=== PATIENT | male | born 1960 | race Caucasian/White ===

== ENCOUNTER 2018-02-11 23:58 | Inpatient (IN) | payer MEDICAID ==
[~2018-02-11] VITALS: Ht 177.8 cm; Wt 100.6 kg
[2018-02-12] VITALS (26 sets, daily range): BP systolic 89–130; BP diastolic 58–84
--- NOTE | 2018-02-12 01:45 | NUR ---
patient arrived to unit at this time. intubated/sedated. vital signs WNL's with 10mcg of levophed.
[2018-02-12] MEDS ORDERED: NORepinephrine 8mg/ 250ml NS 250 ML IV PRN (02:07)
[2018-02-12] MEDS ORDERED: ondansetron/PF 4mg/2ml inj IV PRN (02:10)
[2018-02-12] MEDS ORDERED: acetaminophen 650mg rectal suppository RC PRN (02:10)
[2018-02-12 02:51] LABS: BASOPHILS % (AUTO) 0.3 % (0-1); EOSINOPHILS # (AUTO) 0.1 X10'3 (0-0.9); EOSINOPHILS % (AUTO) 0.5 % (0-6); HEMATOCRIT 24.7 % (42.0-52.0); HEMOGLOBIN 8.1 g/dl (14.0-17.9); LYMPHOCYTES % (AUTO) 13.6 % (21-51); MEAN CORPUSCULAR HGB CONC 32.8 % (33.0-36.5); MEAN CORPUSCULAR VOLUME 94.6 FL (78-98); MEAN PLATELET VOLUME 7.9 FL (7.4-10.4); MONOCYTES # (AUTO) 0.4 X10'3 (0-0.9); MONOCYTES % (AUTO) 2.8 % (2-12); NEUTROPHILS # (AUTO) 12.3 X10'3 (1.8-7.7); NEUTROPHILS % (AUTO) 82.8 % (42-75); PLATELET COUNT 345 X10'3 (140-440); RED BLOOD COUNT 2.61 X10'6 (4.70-6.10); RED CELL DISTRIBUTION WIDTH 15.4 % (11.5-14.5); WHITE BLOOD COUNT 14.8 X10'3 (4.5-11.0)
[2018-02-12 03:01] LABS: ABG BASE EXCESS -0.8 mmol/L (-2.0-3.0); ABG HCO3 23.6 mmol/L (22.0-26.0); ABG OXYGEN SATURATION 97.4 % (95-98); ABG PO2 (T) 103.2 mmHg (83-108); ALLEN'S TEST Positive; FCOHb 0.3 % (0.5-1.5); FMetHb 0.3 % (0.3-1.12); FO2Hb 96.8 % (94-100); MINUTE VOLUME 7 L/min; PATIENT TEMPERATURE 36.6; PEEP 5 cm H2O; RESPIRATORY RATE 16 b/min; RESPIRATORY RATE (OBSERVED) 16 b/min; TIDAL VOLUME 400 mL; TOTAL HEMOGLOBIN 10.1 G/dl (14.0-18.0)
[2018-02-12] MEDS: midazolam 100mg in NS 100ml 100 ML IV PRN (03:02)
[2018-02-12] MEDS: FENTANYL-0.9 % NACL/PF 100 ML IV PRN (03:03)
[2018-02-12 03:04] LABS: INR 1.1 INR; PARTIAL THROMBOPLASTIN TIME 28 SECONDS (22-32); PROTHROMBIN TIME 11.4 SECONDS (9.0-12.0)
[2018-02-12 03:06] LABS: OXYGEN SATURATION (MIXED VEN) 64.4 % (60-80); PO2 MIXED VENOUS (TEMP COR) 31.4 mmHg (35-46)
[2018-02-12] MEDS: normal saline 1000ml 1,000 ML IV SCH ×5 (03:06→20:59)
[2018-02-12 03:14] LABS: LACTIC SEPSIS 1.1 MMOL/L (0.4-2.0)
[2018-02-12 03:14] LABS: CLARITY,URINE CLEAR (Clear); COLOR,URINE YELLOW (Yellow); GLUCOSE, URINE NEGATIVE (Neg); KETONES,URINE NEGATIVE (Neg); LEUKOCYTE ESTERASE ,URINE NEGATIVE (Neg); NITRITES, URINE NEGATIVE (Neg); OCCULT BLOOD,URINE SMALL (Neg); PROTEIN,URINE NEGATIVE (Neg); UROBILINOGEN,URINE 0.2 E.U/dL (0.2-1.0)
[2018-02-12] MEDS: ipratropium/albuterol 3ml nebule NEB SCH ×6 (03:16→22:43)
[2018-02-12 03:17] LABS: UA COLLECTION TYPE FOLEY CATH
[2018-02-12 03:18] LABS: ALANINE AMINOTRANSFERASE 17 U/L (12-78); ALBUMIN 2.3 G/DL (3.4-5.0); ALBUMIN/GLOBULIN RATIO 0.6 (1.1-1.5); ALKALINE PHOSPHATASE 50 IU/L (46-116); ANION GAP 10 (8-16); ASPARTATE AMINO TRANSFERASE 32 U/L (10-37); BILIRUBIN,TOTAL 0.5 MG/DL (0.1-1.0); BLOOD UREA NITROGEN 38 MG/DL (7-18); CALCIUM 8.4 MG/DL (8.5-10.1); CHLORIDE 111 MMOL/L (99-107); CREATININE 5.44 MG/DL (0.60-1.10); GLUCOSE 142 MG/DL (70-104); POTASSIUM 4.7 MMOL/L (3.5-5.1); SODIUM 145 MMOL/L (135-145); TOTAL CARBON DIOXIDE 23.8 MMOL/L (24-32); TOTAL PROTEIN 6.2 G/DL (6.4-8.2); eGFR 11 ML/MIN
[2018-02-12 03:21] LABS: AMMONIA < 10 UMOL/L (11-32)
[2018-02-12 03:27] LABS: MAGNESIUM 1.5 MG/DL (1.5-2.4); PHOSPHORUS 4.8 MG/DL (2.3-4.5); TROPONIN I 0.05 NG/ML (0.0-0.05)
[2018-02-12 03:35] LABS: SQUAMOUS EPITHELIAL CELL,UR FEW /LPF (FEW)
[2018-02-12 03:36] LABS: BACTERIA,URINE FEW /HPF (Neg); WBC,URINE 0-4 /HPF (0-4)
[2018-02-12] MEDS ORDERED: ALLO100T PO (04:54)
[2018-02-12] MEDS ORDERED: HYDR-4069 PO (04:56)
[2018-02-12] MEDS ORDERED: losartan PO (04:58)
[2018-02-12] MEDS ORDERED: CIPR250T4 PO (05:01)
--- NOTE | 2018-02-12 05:45 | NUR ---
patient taken to CT from 514 to 544. tolerated well. continue to monitor.
--- NOTE | 2018-02-12 06:30 | NUR ---
Problems reprioritized. Patient report given, questions answered & plan of care reviewed with Donna FISH.
[2018-02-12] MEDS: heparin, porcine 5000 units/ml vial SQ SCH ×2 (08:00→20:58)
[2018-02-12] MEDS: docusate sodium 100mg/10ml UD cup PO SCH ×2 (08:00→20:57)
[2018-02-12] MEDS: levoFLOXACIN-Levaquin 250mg/D5 50 ML IV SCH (08:00)
[2018-02-12] MEDS: pantoprazole 40 MG vial IV SCH (08:00)
--- NOTE | 2018-02-12 11:42 | NUR ---
Initial: Pt transferred from [facility]/ higher level of care for septic shock and resp failure. Pt currently intubated with unknown ht and BMI, d/w RN. Estimated nutrient needs pending once ht and BMI obtained. Pt may benefit from nutrition support if prolonged intubation. Will continue to follow. Recommendations: 1) Nutrition support if prolonged intubation 2) If TF, prealbumin q M/TH and daily wts 3) Following extubation diet advancement to heart healthy as medically indicated Addendum: 02/12/18 at [address] Amended: Links added.
[2018-02-12 17:34] LABS: CLARITY,URINE CLEAR (Clear); COLOR,URINE STRAW (Yellow); GLUCOSE, URINE NEGATIVE (Neg); KETONES,URINE NEGATIVE (Neg); LEUKOCYTE ESTERASE ,URINE NEGATIVE (Neg); NITRITES, URINE NEGATIVE (Neg); OCCULT BLOOD,URINE TRACE-INTACT (Neg); PROTEIN,URINE NEGATIVE (Neg); UROBILINOGEN,URINE 0.2 E.U/dL (0.2-1.0)
[2018-02-12 17:36] LABS: UA COLLECTION TYPE FOLEY CATH
[2018-02-12 17:37] LABS: MUCUS STRANDS FEW /LPF (Neg); SQUAMOUS EPITHELIAL CELL,UR FEW /LPF (FEW)
[2018-02-12 17:38] LABS: BACTERIA,URINE FEW /HPF (Neg); WBC,URINE 0-4 /HPF (0-4)
[2018-02-12 18:00] LABS: TOTAL PROTEIN,URINE RANDOM 24.7 MG/DL
--- NOTE | 2018-02-12 18:30 | NUR ---
Patient in room CICU 2009. I have received report from Donna FISH, and had the opportunity to ask questions and assume patient care.
[2018-02-12 18:43] LABS: UA EOSINOPHILS NO EOS /HPF
--- NOTE | 2018-02-12 20:00 | NUR ---
PT is resting with no s/s of distress noted at this time. VSS. PT is intubated and sedated and tolerating well, O2 sat >96%. OG is to LIS, yellow/green drainage noted. Delvalle in place draining to gravity. Bed is locked and low Bilat soft wrist restraints in place and secure. Will continue to monitor.
--- NOTE | 2018-02-12 23:30 | NUR ---
PT resting with no s/s of distress noted at this time. VSS. Bed is locked and low. Bilat soft wrist restraints remain in place Will continue to monitor.
[2018-02-13] VITALS (23 sets, daily range): BP systolic 99–140; BP diastolic 60–87
[2018-02-13] MEDS: acetaminophen 325mg tablet PO PRN ×3 (00:29→19:47)
[2018-02-13] MEDS: FENTANYL-0.9 % NACL/PF 100 ML IV PRN ×2 (01:25→15:38)
--- NOTE | 2018-02-13 03:00 | NUR ---
PT continues to rest with no s/s of distress noted at this time. VSS. Bed is locked and low. Bilat soft wrist restraints remain in place Will continue to monitor.
[2018-02-13] MEDS: ipratropium/albuterol 3ml nebule NEB SCH ×6 (03:22→23:23)
[2018-02-13 03:34] LABS: BASOPHILS % (AUTO) 0.2 % (0-1); EOSINOPHILS # (AUTO) 0.1 X10'3 (0-0.9); EOSINOPHILS % (AUTO) 0.6 % (0-6); HEMATOCRIT 25.5 % (42.0-52.0); HEMOGLOBIN 8.6 g/dl (14.0-17.9); LYMPHOCYTES # (AUTO) 2.3 X10'3 (1.1-4.8); LYMPHOCYTES % (AUTO) 13.7 % (21-51); MEAN CORPUSCULAR HEMOGLOBIN 31.7 PG (27.0-31.0); MEAN CORPUSCULAR HGB CONC 33.8 % (33.0-36.5); MEAN CORPUSCULAR VOLUME 94.1 FL (78-98); MEAN PLATELET VOLUME 8.1 FL (7.4-10.4); MONOCYTES # (AUTO) 1.2 X10'3 (0-0.9); MONOCYTES % (AUTO) 6.8 % (2-12); NEUTROPHILS # (AUTO) 13.5 X10'3 (1.8-7.7); NEUTROPHILS % (AUTO) 78.7 % (42-75); PLATELET COUNT 273 X10'3 (140-440); RED BLOOD COUNT 2.71 X10'6 (4.70-6.10); RED CELL DISTRIBUTION WIDTH 15.1 % (11.5-14.5); WHITE BLOOD COUNT 17.1 X10'3 (4.5-11.0)
[2018-02-13 03:36] LABS: INR 1.2 INR; PARTIAL THROMBOPLASTIN TIME 34 SECONDS (22-32); PROTHROMBIN TIME 11.9 SECONDS (9.0-12.0)
[2018-02-13 03:41] LABS: ABG BASE EXCESS -4.6 mmol/L (-2.0-3.0); ABG HCO3 19.1 mmol/L (22.0-26.0); ABG OXYGEN SATURATION 97.5 % (95-98); ABG PCO2 (T) 32.2 mmHg (35.0-48.0); ABG PH (T) 7.394 (7.350-7.450); ABG PO2 (T) 107.8 mmHg (83-108); ALLEN'S TEST Positive; FCOHb 0.1 % (0.5-1.5); FMetHb 0.3 % (0.3-1.12); FO2Hb 97.1 % (94-100); MINUTE VOLUME 8 L/min; PATIENT TEMPERATURE 37.6; PEEP 5 cm H2O; RESPIRATORY RATE 16 b/min; RESPIRATORY RATE (OBSERVED) 18 b/min; TIDAL VOLUME 400 mL; TOTAL HEMOGLOBIN 12.8 G/dl (14.0-18.0)
[2018-02-13 04:02] LABS: ALANINE AMINOTRANSFERASE 16 U/L (12-78); ALBUMIN 2.1 G/DL (3.4-5.0); ALBUMIN/GLOBULIN RATIO 0.5 (1.1-1.5); ALKALINE PHOSPHATASE 44 IU/L (46-116); ANION GAP 12 (8-16); ASPARTATE AMINO TRANSFERASE 24 U/L (10-37); BILIRUBIN,TOTAL 0.5 MG/DL (0.1-1.0); BLOOD UREA NITROGEN 40 MG/DL (7-18); BUN/CREATININE RATIO 7.7 (5.4-32.0); CHLORIDE 113 MMOL/L (99-107); GLUCOSE 87 MG/DL (70-104); MAGNESIUM 1.3 MG/DL (1.5-2.4); PHOSPHORUS 4.3 MG/DL (2.3-4.5); POTASSIUM 4.9 MMOL/L (3.5-5.1); SODIUM 146 MMOL/L (135-145); TOTAL CARBON DIOXIDE 20.6 MMOL/L (24-32); TOTAL PROTEIN 6.3 G/DL (6.4-8.2); eGFR 12 ML/MIN
[2018-02-13] MEDS: normal saline 1000ml 1,000 ML IV SCH ×3 (04:28→19:58)
[2018-02-13] MEDS: midazolam 100mg in NS 100ml 100 ML IV PRN (05:57)
--- NOTE | 2018-02-13 06:38 | NUR ---
Problems reprioritized. Patient report given, questions answered & plan of care reviewed with Shira FISH.
[2018-02-13] MEDS: heparin, porcine 5000 units/ml vial SQ SCH ×2 (08:20→19:42)
[2018-02-13] MEDS: pantoprazole 40 MG vial IV SCH (08:20)
[2018-02-13] MEDS: docusate sodium 100mg/10ml UD cup PO SCH ×2 (08:20→19:42)
[2018-02-13] MEDS: levoFLOXACIN-Levaquin 250mg/D5 50 ML IV SCH (08:21)
[2018-02-13] MEDS: mineral oil/petrolatum ophthal oint EACHEYE SCH ×3 (08:21→19:41)
--- NOTE | 2018-02-13 12:53 | NUR ---
Per Dr. Mancera, will not replace mag of 1.3
--- NOTE | 2018-02-13 16:06 | NUR ---
Tube feeding consult: Patient is intubated. Noted that per MD note patient is newly diagnosed with DM, no A1C available in labs. Patient has h/o ESRD and admitted with septic shock and respiratory failure. Recommendations: 1) Tube feeding using Vital HP starting at 20 ml/hr and advance by 20 ml q 8 to goal rate of 80 ml/hr will provide total volume of 1920 ml, 1920 cals, 168 gm protein, and 1605 ml free water. Provide additional 200 ml water flush q 4. 2) Prealbumin q saturday and , daily wts 3) Following extubation diet advancement to heart healthy as medically indicated Addendum: 02/13/18 at [address] Amended: Links added.
[2018-02-13 18:06] LABS: PREALBUMIN 15.2 MG/DL (19-36)
--- NOTE | 2018-02-13 18:25 | NUR ---
Patient in room CICU 2009. I have received report and had the opportunity to ask questions and assume patient care.
--- NOTE | 2018-02-13 18:41 | NUR ---
Problems reprioritized. Patient report given, questions answered & plan of care reviewed with ABE Knott.
[2018-02-13] MEDS: famotidine/PF 10 mg/ml inj IV SCH (19:42)
--- NOTE | 2018-02-13 22:00 | NUR ---
pt intubated. vitals signs stable. no s/s of distress. no change in condition noted. will continue to monitor
[2018-02-14] VITALS (25 sets, daily range): BP systolic 105–144; BP diastolic 58–89
--- NOTE | 2018-02-14 | NUR ---
pt intubated. vitals signs stable. no s/s of distress. no change in condition noted. will continue to monitor
--- NOTE | 2018-02-14 02:00 | NUR ---
pt intubated. vitals signs stable. no s/s of distress. no change in condition noted. will continue to monitor
[2018-02-14] MEDS ORDERED: lactulose 20gm/30ml cup PO PRN (02:10)
[2018-02-14] MEDS: ipratropium/albuterol 3ml nebule NEB SCH ×5 (02:13→21:24)
[2018-02-14] MEDS: mineral oil/petrolatum ophthal oint EACHEYE SCH ×3 (02:49→14:00)
[2018-02-14 03:34] LABS: BASOPHILS % (AUTO) 0.1 % (0-1); EOSINOPHILS # (AUTO) 0.1 X10'3 (0-0.9); EOSINOPHILS % (AUTO) 0.4 % (0-6); HEMATOCRIT 22.8 % (42.0-52.0); HEMOGLOBIN 7.5 g/dl (14.0-17.9); LYMPHOCYTES # (AUTO) 1.9 X10'3 (1.1-4.8); LYMPHOCYTES % (AUTO) 12.4 % (21-51); MEAN CORPUSCULAR HEMOGLOBIN 31.1 PG (27.0-31.0); MEAN CORPUSCULAR HGB CONC 32.9 % (33.0-36.5); MEAN CORPUSCULAR VOLUME 94.6 FL (78-98); MEAN PLATELET VOLUME 7.9 FL (7.4-10.4); MONOCYTES # (AUTO) 1.1 X10'3 (0-0.9); MONOCYTES % (AUTO) 7.3 % (2-12); NEUTROPHILS # (AUTO) 12.5 X10'3 (1.8-7.7); NEUTROPHILS % (AUTO) 79.8 % (42-75); PLATELET COUNT 232 X10'3 (140-440); RED BLOOD COUNT 2.41 X10'6 (4.70-6.10); WHITE BLOOD COUNT 15.6 X10'3 (4.5-11.0)
[2018-02-14 03:44] LABS: INR 1.3 INR; PARTIAL THROMBOPLASTIN TIME 40 SECONDS (22-32); PROTHROMBIN TIME 12.6 SECONDS (9.0-12.0)
[2018-02-14 03:46] LABS: ALANINE AMINOTRANSFERASE 16 U/L (12-78); ALBUMIN 1.8 G/DL (3.4-5.0); ALBUMIN/GLOBULIN RATIO 0.4 (1.1-1.5); ALKALINE PHOSPHATASE 43 IU/L (46-116); ANION GAP 12 (8-16); ASPARTATE AMINO TRANSFERASE 21 U/L (10-37); BILIRUBIN,TOTAL 0.5 MG/DL (0.1-1.0); BLOOD UREA NITROGEN 40 MG/DL (7-18); BUN/CREATININE RATIO 8.2 (5.4-32.0); CHLORIDE 112 MMOL/L (99-107); CREATININE 4.88 MG/DL (0.60-1.10); GLUCOSE 100 MG/DL (70-104); MAGNESIUM 1.2 MG/DL (1.5-2.4); PHOSPHORUS 4.9 MG/DL (2.3-4.5); POTASSIUM 4.8 MMOL/L (3.5-5.1); SODIUM 145 MMOL/L (135-145); TOTAL CARBON DIOXIDE 21.3 MMOL/L (24-32); TOTAL PROTEIN 6.1 G/DL (6.4-8.2); eGFR 12 ML/MIN
--- NOTE | 2018-02-14 04:00 | NUR ---
pt intubated. vitals signs stable. no s/s of distress. no change in condition noted. will continue to monitor
[2018-02-14] MEDS: acetaminophen 325mg tablet PO PRN ×3 (04:27→22:00)
[2018-02-14 04:46] LABS: ABG BASE EXCESS -4.7 mmol/L (-2.0-3.0); ABG HCO3 19.3 mmol/L (22.0-26.0); ABG OXYGEN SATURATION 94.7 % (95-98); ABG PCO2 (T) 33.4 mmHg (35.0-48.0); ABG PH (T) 7.386 (7.350-7.450); ABG PO2 (T) 82.6 mmHg (83-108); ALLEN'S TEST Positive; FCOHb 0.3 % (0.5-1.5); FMetHb 0.3 % (0.3-1.12); FO2Hb 94.1 % (94-100); PATIENT TEMPERATURE 38.7; PEEP 5 cm H2O; RESPIRATORY RATE (OBSERVED) 15 b/min; TOTAL HEMOGLOBIN 8.1 G/dl (14.0-18.0)
[2018-02-14] MEDS: famotidine/PF 10 mg/ml inj IV SCH ×2 (09:13→19:13)
[2018-02-14] MEDS: levoFLOXACIN-Levaquin 250mg/D5 50 ML IV SCH (09:13)
[2018-02-14] MEDS: docusate sodium 100mg/10ml UD cup PO SCH ×2 (09:13→19:13)
[2018-02-14] MEDS: heparin, porcine 5000 units/ml vial SQ SCH ×2 (09:14→19:13)
[2018-02-14] MEDS ORDERED: methylnaltrexone br 12mg/0.6ml inj***SubQ only SQ SCH (11:24)
[2018-02-14] MEDS ORDERED: ipratropium/albuterol 3ml nebule NEB PRN (13:05)
[2018-02-14] MEDS ORDERED: racepinephrine 11.25mg/0.5ml nebule NEB PRN (13:05)
[2018-02-14] MEDS: normal saline 1000ml 1,000 ML IV SCH (15:58)
[2018-02-14] MEDS: predniSONE 20 mg tablet PO SCH (17:42)
[2018-02-14] MEDS: allopurinol 100mg tablet PO SCH (17:42)
--- NOTE | 2018-02-14 18:30 | NUR ---
Patient in room CICU 2009. I have received report and had the opportunity to ask questions and assume patient care.
--- NOTE | 2018-02-14 18:38 | NUR ---
Problems reprioritized. Patient report given, questions answered & plan of care reviewed with Hedy FISH.
--- NOTE | 2018-02-14 19:00 | NUR ---
pt is very lethargic. pt responds to voice and shaking. pt is A&O x 1. pt is oriented to self but he can follow commands.
[2018-02-15] VITALS (17 sets, daily range): BP systolic 103–141; BP diastolic 63–101
[2018-02-15] MEDS: hydrALAZINE 25 MG tablet PO SCH ×3 (00:12→17:55)
--- NOTE | 2018-02-15 01:00 | NUR ---
pt woke and started asking where he was. pt has no recollection of where he is or what happened to him. pt reoriented.
[2018-02-15] MEDS: ipratropium/albuterol 3ml nebule NEB SCH ×3 (02:45→20:12)
[2018-02-15 03:06] LABS: BASOPHILS % (AUTO) 0 % (0-1); EOSINOPHILS % (AUTO) 0 % (0-6); HEMOGLOBIN 7.1 g/dl (14.0-17.9); LYMPHOCYTES # (AUTO) 0.8 X10'3 (1.1-4.8); LYMPHOCYTES % (AUTO) 6.7 % (21-51); MEAN CORPUSCULAR HEMOGLOBIN 30.1 PG (27.0-31.0); MEAN CORPUSCULAR HGB CONC 32.1 % (33.0-36.5); MEAN PLATELET VOLUME 7.6 FL (7.4-10.4); MONOCYTES # (AUTO) 0.3 X10'3 (0-0.9); MONOCYTES % (AUTO) 2.7 % (2-12); NEUTROPHILS # (AUTO) 10.9 X10'3 (1.8-7.7); NEUTROPHILS % (AUTO) 90.6 % (42-75); PLATELET COUNT 240 X10'3 (140-440); RED BLOOD COUNT 2.34 X10'6 (4.70-6.10); RED CELL DISTRIBUTION WIDTH 16.1 % (11.5-14.5)
[2018-02-15 03:15] LABS: ALANINE AMINOTRANSFERASE 15 U/L (12-78); ALBUMIN 1.8 G/DL (3.4-5.0); ALBUMIN/GLOBULIN RATIO 0.4 (1.1-1.5); ALKALINE PHOSPHATASE 55 IU/L (46-116); ANION GAP 13 (8-16); ASPARTATE AMINO TRANSFERASE 21 U/L (10-37); BILIRUBIN,TOTAL 0.4 MG/DL (0.1-1.0); BLOOD UREA NITROGEN 37 MG/DL (7-18); BUN/CREATININE RATIO 8.4 (5.4-32.0); CALCIUM 8.7 MG/DL (8.5-10.1); CHLORIDE 111 MMOL/L (99-107); CREATININE 4.39 MG/DL (0.60-1.10); GLUCOSE 128 MG/DL (70-104); MAGNESIUM 1.4 MG/DL (1.5-2.4); PHOSPHORUS 4.6 MG/DL (2.3-4.5); POTASSIUM 4.6 MMOL/L (3.5-5.1); SODIUM 144 MMOL/L (135-145); TOTAL CARBON DIOXIDE 19.8 MMOL/L (24-32); TOTAL PROTEIN 6.5 G/DL (6.4-8.2); eGFR 14 ML/MIN
[2018-02-15 03:26] LABS: INR 1.2 INR; PARTIAL THROMBOPLASTIN TIME 40 SECONDS (22-32); PROTHROMBIN TIME 11.7 SECONDS (9.0-12.0)
--- NOTE | 2018-02-15 03:41 | NUR ---
pt woke up and asked me when dialysis would be over. pt reoriented to where he was and why he was taken to the hospital. pt remains A&O x 1. will continue to monitor
[2018-02-15] MEDS: docusate sodium 100mg/10ml UD cup PO SCH ×3 (08:00→20:30)
[2018-02-15] MEDS: levoFLOXACIN-Levaquin 250mg/D5 50 ML IV SCH (08:29)
[2018-02-15] MEDS: predniSONE 20 mg tablet PO SCH (08:34)
[2018-02-15] MEDS: famotidine/PF 10 mg/ml inj IV SCH (08:34)
[2018-02-15] MEDS: losartan 50mg tablet PO SCH (08:34)
[2018-02-15] MEDS: allopurinol 100mg tablet PO SCH (08:34)
[2018-02-15] MEDS: heparin, porcine 5000 units/ml vial SQ SCH ×2 (08:42→20:30)
[2018-02-15] MEDS ORDERED: colchicine 0.6mg tablet PO ONE (08:45)
--- NOTE | 2018-02-15 08:53 | NUR ---
Patient's H/H 7.1 and 22; Dr. Mancera at the bedside. No orders to transfuse and okay to admin Heparin SQ
[2018-02-15 10:06] LABS: HEMOGLOBIN A1C 7.9 % (4.5-6.2)
[2018-02-15] MEDS: normal saline 1000ml 1,000 ML IV SCH (11:58)
--- NOTE | 2018-02-15 14:00 | NUR ---
I received patient report from Dread FISH in ICU
[2018-02-15] MEDS: acetaminophen 325mg tablet PO PRN ×2 (14:04→20:31)
--- NOTE | 2018-02-15 15:21 | NUR ---
Patient transferred to PCU 2015A at 1427 with all belongings; Report given to Nathalia FISH
--- NOTE | 2018-02-15 18:24 | NUR ---
Problems reprioritized. Patient report given, questions answered & plan of care reviewed with Sandra FISH.
[2018-02-16] VITALS: BP 141/86
[2018-02-16] MEDS: hydrALAZINE 25 MG tablet PO SCH ×3 (00:23→17:14)
[2018-02-16] MEDS: ipratropium/albuterol 3ml nebule NEB SCH ×4 (02:40→20:24)
[2018-02-16 03:00] VITALS: BP 136/87
[2018-02-16 06:13] LABS: ALANINE AMINOTRANSFERASE 17 U/L (12-78); ALBUMIN 1.9 G/DL (3.4-5.0); ALBUMIN/GLOBULIN RATIO 0.4 (1.1-1.5); ALKALINE PHOSPHATASE 58 IU/L (46-116); ANION GAP 16 (8-16); ASPARTATE AMINO TRANSFERASE 21 U/L (10-37); BILIRUBIN,TOTAL 0.3 MG/DL (0.1-1.0); BLOOD UREA NITROGEN 40 MG/DL (7-18); BUN/CREATININE RATIO 9.9 (5.4-32.0); CALCIUM 8.6 MG/DL (8.5-10.1); CHLORIDE 110 MMOL/L (99-107); CREATININE 4.05 MG/DL (0.60-1.10); GLUCOSE 99 MG/DL (70-104); MAGNESIUM 1.7 MG/DL (1.5-2.4); PHOSPHORUS 3.7 MG/DL (2.3-4.5); POTASSIUM 3.9 MMOL/L (3.5-5.1); SODIUM 145 MMOL/L (135-145); TOTAL PROTEIN 6.6 G/DL (6.4-8.2); eGFR 15 ML/MIN
[2018-02-16 06:20] LABS: BASOPHILS % (AUTO) 0.2 % (0-1); EOSINOPHILS # (AUTO) 0.1 X10'3 (0-0.9); EOSINOPHILS % (AUTO) 0.8 % (0-6); LYMPHOCYTES # (AUTO) 1.5 X10'3 (1.1-4.8); LYMPHOCYTES % (AUTO) 13.5 % (21-51); MEAN CORPUSCULAR HEMOGLOBIN 30.1 PG (27.0-31.0); MEAN CORPUSCULAR HGB CONC 32.2 % (33.0-36.5); MEAN CORPUSCULAR VOLUME 93.4 FL (78-98); MEAN PLATELET VOLUME 7.8 FL (7.4-10.4); MONOCYTES # (AUTO) 0.7 X10'3 (0-0.9); MONOCYTES % (AUTO) 6.7 % (2-12); NEUTROPHILS # (AUTO) 8.7 X10'3 (1.8-7.7); NEUTROPHILS % (AUTO) 78.8 % (42-75); PLATELET COUNT 275 X10'3 (140-440); RED CELL DISTRIBUTION WIDTH 16.3 % (11.5-14.5)
[2018-02-16 06:36] LABS: HEMATOCRIT 21.5 % (42.0-52.0); HEMOGLOBIN 6.9 g/dl (14.0-17.9)
[2018-02-16 07:00] VITALS: BP 143/88
[2018-02-16] MEDS: docusate sodium 100mg/10ml UD cup PO SCH ×2 (08:00→20:00)
[2018-02-16] MEDS: losartan 50mg tablet PO SCH (08:59)
[2018-02-16] MEDS: allopurinol 100mg tablet PO SCH (08:59)
[2018-02-16] MEDS: predniSONE 20 mg tablet PO SCH (08:59)
[2018-02-16] MEDS: normal saline 1000ml 1,000 ML IV SCH (08:59)
[2018-02-16] MEDS: heparin, porcine 5000 units/ml vial SQ SCH ×2 (09:00→19:18)
[2018-02-16 12:00] VITALS: BP 137/76
--- NOTE | 2018-02-16 14:59 | NUR ---
Pt extubated advanced to renal diet 50% avg PO. Nepro TIDWM added for additional protein needs; MD notified. A1C returned 7.9; SHERRIE d/w RN for possible repeat A1C per MD approval given pt not on carb controlled diet or hyperglycemic protocol and on prednisone w/ GLU WNL. Newly DX DM and will need DM ed prior to d/c; will monitor for new A1C results and appropriateness for ed. Recommendations: 1) advancement to renal/carb controlled per MD 2) Nepro TIDWM 3) new A1C retest per MD approval 4) DM ed prior to d/c; new DX Addendum: 02/16/18 at [address] Amended: Links added.
[2018-02-16 19:00] VITALS: BP 162/104
[2018-02-16] MEDS: acetaminophen 325mg tablet PO PRN (19:08)
[2018-02-16] MEDS ORDERED: prednisone 10mg tablet PO ONE (19:20)
[2018-02-16] MEDS ORDERED: allopurinol 100mg tablet PO ONE (22:45)
[2018-02-16] MEDS ORDERED: MESSAGE TO PHARMACY PO ONE (22:45)
[2018-02-16] MEDS ORDERED: dextrose ORAL solution 15 GM/59 ML bottle PO PRN ×2 (22:45)
[2018-02-16] MEDS ORDERED: dextrose 50%-water 50ml dispensing syringe IV PRN ×2 (22:45)
[2018-02-16] MEDS ORDERED: glucagon, human recombinant 1mg kit SUBCUT PRN (22:45)
[2018-02-16 23:00] VITALS: BP 162/104
[2018-02-17] MEDS: insulin glargine (Lantus) pen - multi-dose SQ SCH ×2 (00:03→21:36)
[2018-02-17] MEDS: ipratropium/albuterol 3ml nebule NEB SCH ×4 (02:27→19:40)
[2018-02-17] MEDS: acetaminophen 325mg tablet PO PRN (02:33)
[2018-02-17 03:00] VITALS: BP 163/101
[2018-02-17 05:29] LABS: BASOPHILS % (AUTO) 0.3 % (0-1); EOSINOPHILS % (AUTO) 0 % (0-6); HEMOGLOBIN 7.1 g/dl (14.0-17.9); LYMPHOCYTES # (AUTO) 1.8 X10'3 (1.1-4.8); LYMPHOCYTES % (AUTO) 17.8 % (21-51); MEAN CORPUSCULAR HEMOGLOBIN 30.2 PG (27.0-31.0); MEAN CORPUSCULAR HGB CONC 32.6 % (33.0-36.5); MEAN CORPUSCULAR VOLUME 92.8 FL (78-98); MEAN PLATELET VOLUME 7.4 FL (7.4-10.4); MONOCYTES # (AUTO) 0.8 X10'3 (0-0.9); MONOCYTES % (AUTO) 7.6 % (2-12); NEUTROPHILS # (AUTO) 7.6 X10'3 (1.8-7.7); NEUTROPHILS % (AUTO) 74.3 % (42-75); PLATELET COUNT 306 X10'3 (140-440); RED BLOOD COUNT 2.36 X10'6 (4.70-6.10); RED CELL DISTRIBUTION WIDTH 16.6 % (11.5-14.5); WHITE BLOOD COUNT 10.2 X10'3 (4.5-11.0)
[2018-02-17] MEDS: normal saline 1000ml 1,000 ML IV SCH (05:29)
[2018-02-17 05:30] LABS: ALANINE AMINOTRANSFERASE 17 U/L (12-78); ALBUMIN/GLOBULIN RATIO 0.4 (1.1-1.5); ALKALINE PHOSPHATASE 56 IU/L (46-116); ANION GAP 12 (8-16); ASPARTATE AMINO TRANSFERASE 21 U/L (10-37); BILIRUBIN,TOTAL 0.2 MG/DL (0.1-1.0); BLOOD UREA NITROGEN 38 MG/DL (7-18); CALCIUM 8.2 MG/DL (8.5-10.1); CHLORIDE 110 MMOL/L (99-107); CREATININE 3.81 MG/DL (0.60-1.10); GLUCOSE 142 MG/DL (70-104); MAGNESIUM 1.6 MG/DL (1.5-2.4); PHOSPHORUS 2.8 MG/DL (2.3-4.5); POTASSIUM 3.6 MMOL/L (3.5-5.1); SODIUM 143 MMOL/L (135-145); TOTAL CARBON DIOXIDE 20.6 MMOL/L (24-32); TOTAL PROTEIN 6.7 G/DL (6.4-8.2); eGFR 17 ML/MIN
[2018-02-17 05:34] LABS: FERRITIN 1208 NG/ML (26-388)
[2018-02-17 05:45] LABS: HEMATOCRIT 21.9 % (42.0-52.0)
[2018-02-17 06:00] VITALS: BP 152/95
--- NOTE | 2018-02-17 06:18 | NUR ---
Problems reprioritized. Patient report given, questions answered & plan of care reviewed with Gavi FISH.
--- NOTE | 2018-02-17 06:21 | NUR ---
[place] Medication Administration: For this medication-pass time frame, all medication were reviewed, dispensed, administered and documented per hospital policy by Almita FISH .
--- NOTE | 2018-02-17 06:21 | NUR ---
[place] documentation: I have reviewed and agree with all interventions, assessments performed and documented by Almita FISH.
--- NOTE | 2018-02-17 06:30 | NUR ---
Patient in room PCU 3015. I have received report from Verónica FISH and had the opportunity to ask questions and assume patient care. Patient resting comfortably in bed. In no acute distress. Will continue to monitor.
[2018-02-17] MEDS: docusate sodium 100mg/10ml UD cup PO SCH ×2 (08:00→20:00)
[2018-02-17] MEDS ORDERED: allopurinol 100mg tablet PO SCH (08:30)
[2018-02-17] MEDS: hydrALAZINE 25 MG tablet PO SCH ×3 (09:33→17:34)
[2018-02-17] MEDS: predniSONE 20 mg tablet PO SCH (09:33)
[2018-02-17] MEDS: allopurinol 100mg tablet PO SCH ×2 (09:33→17:34)
[2018-02-17] MEDS: losartan 50mg tablet PO SCH (09:34)
[2018-02-17] MEDS: heparin, porcine 5000 units/ml vial SQ SCH ×2 (09:34→19:25)
[2018-02-17] MEDS: insulin Lispro (HumaLOG) vial - multi-dose SQ SCH ×2 (09:44→18:54)
[2018-02-17 11:00] VITALS: BP 173/106
[2018-02-17] MEDS ORDERED: levoFLOXACIN 250mg tablet PO SCH (11:00)
[2018-02-17 12:15] LABS: % IRON SATURATION 69 % (11-46); IRON 72 UG/DL (53-167); RHEUM FACTOR QUAL REFLEX TITER NEGATIVE (Neg); TOTAL IRON BINDING CAPACITY 104 UG/DL (259-388)
[2018-02-17 15:00] VITALS: BP 171/79
[2018-02-17] MEDS: diltiazem CD 180mg cap (once-daily) PO SCH (17:32)
[2018-02-17] MEDS: HYDROcodone/acetaminophen 10/325mg tab PO PRN ×2 (17:33→21:40)
--- NOTE | 2018-02-17 18:30 | NUR ---
Problems reprioritized. Patient report given, questions answered & plan of care reviewed with Verónica FISH.
[2018-02-17 19:00] VITALS: BP 171/114
--- NOTE | 2018-02-17 19:00 | NUR ---
Patient's blood pressure 171/ 111, contacted Prince Lilly DE ALCOHOLIZER, he ordered 10mg Hydralazine to be given now. Will continue to monitor closely
[2018-02-17] MEDS ORDERED: hydrALAZINE 20mg/ml inj. IV ONE (19:20)
[2018-02-17] MEDS: epoetin 20,000 units/ml inj SQ SCH (19:23)
[2018-02-17] MEDS: lactobacillus rhamnosus 10,000 MMU CELLS/CAPSULE PO SCH (19:25)
[2018-02-17 23:00] VITALS: BP 164/111
[2018-02-18] MEDS: hydrALAZINE 25 MG tablet PO SCH ×3 (00:05→15:21)
--- NOTE | 2018-02-18 01:30 | NUR ---
Patient's blood pressure continues to be elevated 160-170 systolic, contacted Prince Lilly NP, he ordered 1 inch of Nitro paste to be administered at this time. Will continue to monitor closely
[2018-02-18] MEDS ORDERED: nitroGLYCERIN 1gm ointment UD TP ONE (01:35)
[2018-02-18] MEDS: normal saline 1000ml 1,000 ML IV SCH ×2 (01:49→21:03)
[2018-02-18] MEDS: ipratropium/albuterol 3ml nebule NEB SCH ×2 (02:50→08:50)
[2018-02-18 03:00] VITALS: BP 159/102
[2018-02-18 05:35] LABS: BASOPHILS % (AUTO) 0.2 % (0-1); EOSINOPHILS % (AUTO) 0 % (0-6); HEMATOCRIT 23.7 % (42.0-52.0); HEMOGLOBIN 7.7 g/dl (14.0-17.9); LYMPHOCYTES # (AUTO) 2.1 X10'3 (1.1-4.8); LYMPHOCYTES % (AUTO) 16.6 % (21-51); MEAN CORPUSCULAR HEMOGLOBIN 29.8 PG (27.0-31.0); MEAN CORPUSCULAR HGB CONC 32.4 % (33.0-36.5); MEAN PLATELET VOLUME 6.8 FL (7.4-10.4); MONOCYTES # (AUTO) 1.1 X10'3 (0-0.9); MONOCYTES % (AUTO) 8.6 % (2-12); NEUTROPHILS # (AUTO) 9.5 X10'3 (1.8-7.7); NEUTROPHILS % (AUTO) 74.6 % (42-75); PLATELET COUNT 346 X10'3 (140-440); RED BLOOD COUNT 2.58 X10'6 (4.70-6.10); RED CELL DISTRIBUTION WIDTH 16.5 % (11.5-14.5); WHITE BLOOD COUNT 12.7 X10'3 (4.5-11.0)
[2018-02-18 05:47] LABS: ALANINE AMINOTRANSFERASE 22 U/L (12-78); ALBUMIN 2.2 G/DL (3.4-5.0); ALBUMIN/GLOBULIN RATIO 0.5 (1.1-1.5); ALKALINE PHOSPHATASE 61 IU/L (46-116); ANION GAP 13 (8-16); ASPARTATE AMINO TRANSFERASE 23 U/L (10-37); BILIRUBIN,TOTAL 0.3 MG/DL (0.1-1.0); BLOOD UREA NITROGEN 34 MG/DL (7-18); CALCIUM 8.7 MG/DL (8.5-10.1); CHLORIDE 109 MMOL/L (99-107); CREATININE 3.09 MG/DL (0.60-1.10); GLUCOSE 94 MG/DL (70-104); MAGNESIUM 1.5 MG/DL (1.5-2.4); PHOSPHORUS 3.3 MG/DL (2.3-4.5); POTASSIUM 3.8 MMOL/L (3.5-5.1); SODIUM 142 MMOL/L (135-145); TOTAL CARBON DIOXIDE 19.9 MMOL/L (24-32); TOTAL PROTEIN 6.7 G/DL (6.4-8.2); eGFR 21 ML/MIN
[2018-02-18 06:00] VITALS: BP 152/12
--- NOTE | 2018-02-18 06:23 | NUR ---
Problems reprioritized. Patient report given, questions answered & plan of care reviewed with Gavi FISH.
--- NOTE | 2018-02-18 06:27 | NUR ---
[place] documentation: I have reviewed and agree with all interventions, assessments performed and documented by Almita FISH.
--- NOTE | 2018-02-18 06:28 | NUR ---
[place] Medication Administration: For this medication-pass time frame, all medication were reviewed, dispensed, administered and documented per hospital policy by Almita FISH.
[2018-02-18] MEDS: diltiazem CD 180mg cap (once-daily) PO SCH (07:32)
[2018-02-18] MEDS: HYDROcodone/acetaminophen 10/325mg tab PO PRN ×4 (07:32→21:03)
[2018-02-18] MEDS: losartan 50mg tablet PO SCH (07:32)
[2018-02-18] MEDS: lactobacillus rhamnosus 10,000 MMU CELLS/CAPSULE PO SCH ×2 (07:33→19:26)
[2018-02-18] MEDS: heparin, porcine 5000 units/ml vial SQ SCH ×2 (07:33→19:27)
[2018-02-18] MEDS: allopurinol 100mg tablet PO SCH (07:33)
[2018-02-18] MEDS: docusate sodium 100mg/10ml UD cup PO SCH ×2 (08:00→19:21)
[2018-02-18] MEDS: predniSONE 20 mg tablet PO SCH (09:25)
--- NOTE | 2018-02-18 10:00 | NUR ---
Patient blood glucose 89. Carbs at breakfast 8. No humalog given at this time. Will continue to monitor.
[2018-02-18 11:00] VITALS: BP 141/88
--- NOTE | 2018-02-18 11:28 | NUR ---
Reassessment: No new A1c lab draw was ordered, d/w RN as patient continues on steroids however most BG levels are WNL. Pt now on CHO controlled renal diet and glycemic protocol. Documented PO intake average 50%. Pt seen at bedside states he has a good appetite and that he would like to d/c the Nepro TID as he isn't drinking them at all, d/w dietary. Pt states no food allergies or constipation/diarrhea. LBM 02/17. Will continue to follow. Recommendations: 1) Continue renal/carb controlled diet 2) new A1C retest per MD approval 3) DM ed prior to d/c; new DX 4) Wt per rx Addendum: 02/18/18 at [address] Amended: Links added.
[2018-02-18] MEDS: insulin Lispro (HumaLOG) vial - multi-dose SQ SCH ×2 (13:05→18:46)
[2018-02-18 15:00] VITALS: BP_SYST 141; BP_SYST 149; BP_DIAS 102; BP_DIAS 88
[2018-02-18] MEDS: levoFLOXACIN 250mg tablet PO SCH (15:21)
[2018-02-18 19:00] VITALS: BP 137/92
[2018-02-18] MEDS: insulin glargine (Lantus) pen - multi-dose SQ SCH (21:10)
[2018-02-18 22:00] VITALS: BP 157/101
[2018-02-19 00:58] LABS: BASOPHILS % (AUTO) 0.3 % (0-1); EOSINOPHILS % (AUTO) 0.1 % (0-6); HEMATOCRIT 24.1 % (42.0-52.0); HEMOGLOBIN 7.8 g/dl (14.0-17.9); LYMPHOCYTES # (AUTO) 2.3 X10'3 (1.1-4.8); LYMPHOCYTES % (AUTO) 16.3 % (21-51); MEAN CORPUSCULAR HGB CONC 32.5 % (33.0-36.5); MEAN CORPUSCULAR VOLUME 92.4 FL (78-98); MEAN PLATELET VOLUME 6.8 FL (7.4-10.4); MONOCYTES # (AUTO) 1.3 X10'3 (0-0.9); MONOCYTES % (AUTO) 8.8 % (2-12); NEUTROPHILS # (AUTO) 10.6 X10'3 (1.8-7.7); NEUTROPHILS % (AUTO) 74.5 % (42-75); PLATELET COUNT 347 X10'3 (140-440); RED BLOOD COUNT 2.61 X10'6 (4.70-6.10); RED CELL DISTRIBUTION WIDTH 15.4 % (11.5-14.5); WHITE BLOOD COUNT 14.2 X10'3 (4.5-11.0)
[2018-02-19 01:29] LABS: ALANINE AMINOTRANSFERASE 22 U/L (12-78); ALBUMIN 2.2 G/DL (3.4-5.0); ALBUMIN/GLOBULIN RATIO 0.5 (1.1-1.5); ALKALINE PHOSPHATASE 59 IU/L (46-116); ANION GAP 11 (8-16); ASPARTATE AMINO TRANSFERASE 22 U/L (10-37); BILIRUBIN,TOTAL 0.3 MG/DL (0.1-1.0); BLOOD UREA NITROGEN 36 MG/DL (7-18); BUN/CREATININE RATIO 12.1 (5.4-32.0); CALCIUM 8.3 MG/DL (8.5-10.1); CHLORIDE 106 MMOL/L (99-107); CREATININE 2.98 MG/DL (0.60-1.10); GLUCOSE 108 MG/DL (70-104); MAGNESIUM 1.5 MG/DL (1.5-2.4); PHOSPHORUS 3.8 MG/DL (2.3-4.5); POTASSIUM 3.9 MMOL/L (3.5-5.1); SODIUM 139 MMOL/L (135-145); TOTAL CARBON DIOXIDE 22.1 MMOL/L (24-32); TOTAL PROTEIN 6.6 G/DL (6.4-8.2); eGFR 22 ML/MIN
[2018-02-19 03:00] VITALS: BP 150/100
[2018-02-19] MEDS: HYDROcodone/acetaminophen 10/325mg tab PO PRN ×3 (05:03→13:16)
[2018-02-19 05:59] LABS: TOTAL CELLS COUNTED 100
[2018-02-19 06:00] VITALS: BP 150/94
[2018-02-19 06:00] LABS: PLATELET ESTIMATE NORMAL; POLYCHROMASIA FEW; SCHISTOCYTES FEW
--- NOTE | 2018-02-19 06:43 | NUR ---
Patient in room PCU 3015. I have received report from Gavi FISH and had the opportunity to ask questions and assume patient care.
--- NOTE | 2018-02-19 06:44 | NUR ---
Problems reprioritized. Patient report given, questions answered & plan of care reviewed with Pb FISH.
[2018-02-19] MEDS: docusate sodium 100mg/10ml UD cup PO SCH (07:41)
[2018-02-19] MEDS: heparin, porcine 5000 units/ml vial SQ SCH (07:42)
[2018-02-19] MEDS: predniSONE 20 mg tablet PO SCH (07:42)
[2018-02-19] MEDS: lactobacillus rhamnosus 10,000 MMU CELLS/CAPSULE PO SCH (07:42)
[2018-02-19] MEDS: allopurinol 100mg tablet PO SCH (07:42)
[2018-02-19] MEDS: diltiazem CD 180mg cap (once-daily) PO SCH (07:43)
[2018-02-19] MEDS: losartan 50mg tablet PO SCH (07:43)
[2018-02-19] MEDS: hydrALAZINE 25 MG tablet PO SCH ×2 (07:43)
[2018-02-19] MEDS: insulin Lispro (HumaLOG) vial - multi-dose SQ SCH ×2 (08:58→13:15)
[2018-02-19 10:00] VITALS: BP 148/99
[2018-02-19] MEDS: levoFLOXACIN 250mg tablet PO SCH (10:52)
[2018-02-19] MEDS: epoetin 20,000 units/ml inj SQ SCH (10:55)
[2018-02-19] MEDS ORDERED: DILT180C66 PO (13:37)
[2018-02-19] MEDS ORDERED: HYDR-3972 PO (13:37)
--- NOTE | 2018-02-19 14:31 | NUR ---
Reassessment: Pt seen at bedside given written DM education with referral to outpatient DM class and RD contact information. Pt endorses an increased appetite which is evident with documented PO intake ~50-75% on renal CHO controlled diet. Will continue to follow. Addendum: 02/19/18 at [address] Amended: Links added.
--- NOTE | 2018-02-19 15:42 | NUR ---
Patient discharged home, IV taken out and patient education went over with patient, transported via [facility], all belongings sent with patient
--- NOTE | 2018-02-19 15:51 | NUR ---
Patient left without wallet in our safe, jostin Amin made aware and will have patient Yuriy call once he arrives in [facility]
--- NOTE | 2018-02-20 10:06 | NUR ---
Pt d/c'd home, prior to SS assessment. SS referral closed.
== END 2018-02-19 16:01 | disposition home or self-care (01) | DRG 133 ==
LOC: CICU 2S 02-12 01:48 → PCU 3S 02-15 14:30
PROVIDERS: ADMIT Internal Medicine Critical Care Medicine; ATTEND Internal Medicine Critical Care Medicine
PROC: 5A1945Z Respiratory Ventilation, 24-96 Consecutive Hours (ICD-10-PCS; principal; 2018-02-12)
PROC: 0BH17EZ Insertion of Endotracheal Airway into Trachea, Via Natural or Artificial Opening (ICD-10-PCS; 2018-02-12)
DX: J96.00 Acute respiratory failure, unspecified whether with hypoxia or hypercapnia (principal); R57.9 Shock, unspecified; Z99.11 Dependence on respirator [ventilator] status; E11.22 Type 2 diabetes mellitus with diabetic chronic kidney disease; N17.9 Acute kidney failure, unspecified; I12.0 Hypertensive chronic kidney disease with stage 5 chronic kidney disease or end stage renal disease; Q61.3 Polycystic kidney, unspecified; D63.8 Anemia in other chronic diseases classified elsewhere; E86.9 Volume depletion, unspecified; M10.9 Gout, unspecified; N18.6 End stage renal disease; Z99.2 Dependence on renal dialysis; Z79.899 Other long term (current) drug therapy
CPT/HCPCS: 36415; 36600; 71045; 71250; 74176; 76775; 80053; 81001; 82140; 82570; 82728; 82803; 82810; 82948; 83036; 83540; 83550; 83605; 83735; 83880; 84100; 84134; 84145; 84156; 84300; 84443; 84484; 84550; 85018; 85025; 85610; 85730; 86430; 86885; 86900; 86901; 87040; 87070; 87077; 87207; 87502; 87503; 92616; 93005; 94002; 94003; 94640; 94760; 97110; 97116; 97161; 97530; C9113; G0378; J0360; J0885; J1644; J1815; J1956; J2250; J3490; J7030; J7512

== ENCOUNTER 2018-03-05 00:52 | Inpatient (IN) | payer MEDICAID ==
[~2018-03-05] VITALS: Ht 175.3 cm; Wt 101.0 kg
[~2018-03-05 00:52] MED LIST: ALLO100T PO; DILT180C66 PO; HYDR-3972 PO; HYDR-4069 PO; losartan PO
[2018-03-05] MEDS ORDERED: predniSONE 20 mg tablet PO ONE (01:40)
[2018-03-05] MEDS ORDERED: acetaminophen 325mg tablet PO PRN ×2 (01:40)
[2018-03-05] MEDS ORDERED: HYDROcodone/acetaminophen 5mg/325mg tablet PO PRN (01:40)
[2018-03-05] MEDS ORDERED: ondansetron/PF 4mg/2ml inj IV PRN (01:40)
[2018-03-05] MEDS ORDERED: mag hydrox/Alum hydrox/simeth 30ml oral suspension PO PRN (01:40)
[2018-03-05] MEDS ORDERED: magnesium hydroxide 30ml (MOM) UD suspension PO PRN (01:40)
[2018-03-05] MEDS ORDERED: HYDROmorphone inj. 0.5 MG/0.5 ML DISP.SYRIN IV PRN (01:40)
[2018-03-05] MEDS: CefTRIAXone/D5W-Rocephin 1gm 50 ML IV SCH (01:57)
[2018-03-05] MEDS ORDERED: ATOR40TA PO (02:24)
[2018-03-05] MEDS ORDERED: CARV-50 PO (02:24)
[2018-03-05] MEDS ORDERED: SODI650T29 PO (02:24)
[2018-03-05] MEDS ORDERED: CLON-529 PO (02:24)
[2018-03-05] MEDS ORDERED: ALLO100T PO (02:24)
[2018-03-05] MEDS ORDERED: ASPI81TA52 PO (02:24)
[2018-03-05] MEDS ORDERED: CALC668T PO (02:24)
[2018-03-05] MEDS ORDERED: DILT180T2 PO (02:24)
[2018-03-05] MEDS ORDERED: HYDR-4353 PO (02:24)
[2018-03-05] MEDS ORDERED: METO-292 PO (02:24)
[2018-03-05] MEDS ORDERED: INSU100V40 (02:24)
[2018-03-05] MEDS ORDERED: LOSA25TA96 PO (02:24)
[2018-03-05] MEDS ORDERED: INSU100V30 SQ (02:24)
[2018-03-05] MEDS ORDERED: FURO80TA3 PO (02:24)
[2018-03-05] MEDS ORDERED: RANI150T8 PO (02:24)
[2018-03-05] MEDS ORDERED: ISOS20TA8 PO (02:24)
[2018-03-05] MEDS ORDERED: HYDR-4069 PO (02:24)
--- NOTE | 2018-03-05 04:03 | NUR ---
Received report from ER nurse Aditya FISH will assume patient care.
[2018-03-05 04:17] VITALS: BP 148/88
[2018-03-05] MEDS: HYDROmorphone 1 mg/ml syringe IV PRN ×4 (04:26→19:04)
[2018-03-05] MEDS ORDERED: glucagon, human recombinant 1mg kit SUBCUT PRN (04:40)
[2018-03-05] MEDS ORDERED: MESSAGE TO PHARMACY PO ONE (04:40)
[2018-03-05] MEDS ORDERED: dextrose 50%-water 50ml dispensing syringe IV PRN ×2 (04:40)
[2018-03-05] MEDS ORDERED: dextrose ORAL solution 15 GM/59 ML bottle PO PRN ×2 (04:40)
[2018-03-05 06:00] VITALS: BP 123/69
[2018-03-05] MEDS: heparin, porcine 5000 units/ml vial SQ SCH ×2 (09:58→19:38)
[2018-03-05 12:00] VITALS: BP 131/67
[2018-03-05 15:00] VITALS: BP 106/66
[2018-03-05 16:09] LABS: BASOPHILS % (AUTO) 0.1 % (0-1); EOSINOPHILS % (AUTO) 0 % (0-6); HEMATOCRIT 26.4 % (42.0-52.0); HEMOGLOBIN 8.6 g/dl (14.0-17.9); LYMPHOCYTES % (AUTO) 4.9 % (21-51); MEAN CORPUSCULAR HEMOGLOBIN 29.7 PG (27.0-31.0); MEAN CORPUSCULAR HGB CONC 32.4 % (33.0-36.5); MEAN CORPUSCULAR VOLUME 91.5 FL (78-98); MEAN PLATELET VOLUME 7.4 FL (7.4-10.4); MONOCYTES # (AUTO) 0.3 X10'3 (0-0.9); MONOCYTES % (AUTO) 1.6 % (2-12); NEUTROPHILS # (AUTO) 18.3 X10'3 (1.8-7.7); NEUTROPHILS % (AUTO) 93.4 % (42-75); PLATELET COUNT 353 X10'3 (140-440); RED BLOOD COUNT 2.89 X10'6 (4.70-6.10); RED CELL DISTRIBUTION WIDTH 17.3 % (11.5-14.5); WHITE BLOOD COUNT 19.6 X10'3 (4.5-11.0)
[2018-03-05 16:34] LABS: ALANINE AMINOTRANSFERASE 17 U/L (12-78); ALBUMIN 2.6 G/DL (3.4-5.0); ALBUMIN/GLOBULIN RATIO 0.4 (1.1-1.5); ALKALINE PHOSPHATASE 77 IU/L (46-116); ANION GAP 17 (8-16); ASPARTATE AMINO TRANSFERASE 17 U/L (10-37); BILIRUBIN,TOTAL 0.4 MG/DL (0.1-1.0); BLOOD UREA NITROGEN 44 MG/DL (7-18); BUN/CREATININE RATIO 10.7 (5.4-32.0); CALCIUM 9.5 MG/DL (8.5-10.1); CHLORIDE 102 MMOL/L (99-107); CREATININE 4.11 MG/DL (0.60-1.10); GLUCOSE 179 MG/DL (70-104); PHOSPHORUS 5.2 MG/DL (2.3-4.5); POTASSIUM 4.7 MMOL/L (3.5-5.1); SODIUM 137 MMOL/L (135-145); TOTAL CARBON DIOXIDE 18.1 MMOL/L (24-32); TOTAL PROTEIN 8.5 G/DL (6.4-8.2); eGFR 15 ML/MIN
[2018-03-05 18:35] VITALS: BP 147/94
--- NOTE | 2018-03-05 19:05 | NUR ---
IV FLUSHED PATENT WITH BLOOD RETURN. AFTER GIVING DILAUDED, PT STATES IV BURING "SEVERE" AND STATES MEDICATION DID NOT GO IN VEIN. PT REQUESTS NEW IV. CNC MANAGER TO START IV ON PATIENT. Addendum: 03/05/18 at 1947 by Shan Carreno RN Amended: Links added.
[2018-03-05] MEDS: lactobacillus rhamnosus 10,000 MMU CELLS/CAPSULE PO SCH (19:37)
[2018-03-05] MEDS: HYDROcodone/acetaminophen 10/325mg tab PO PRN ×2 (19:38→23:40)
[2018-03-05] MEDS: famotidine 20mg tablet PO SCH (19:38)
[2018-03-05] MEDS ORDERED: temazepam 15mg capsule PO PRN (21:00)
--- NOTE | 2018-03-05 22:23 | NUR ---
x3 rn.s have looked at pt unable to get an iv in, has had no attempts, at this time, but unable to palpated accesable vein in hands. AREA CLEANER to come attempt Addendum: 03/05/18 at 2224 by Shan Carreno RN Amended: Links added.
[2018-03-05] MEDS: insulin glargine (Lantus) pen - multi-dose SQ SCH (22:36)
--- NOTE | 2018-03-05 23:15 | NUR ---
cruz giordano unable to start iv x2 attempts. iv to right a/c re adjusted and taped flushed and is patent. pt did not complaint of any pain this time. Addendum: 03/06/18 at 0135 by Shan Carreno RN Amended: Links added.
[2018-03-05 23:40] VITALS: BP 132/86
--- NOTE | 2018-03-06 01:30 | NUR ---
refuses v/s Addendum: 03/06/18 at 0144 by Shan Carreno RN Amended: Links added.
[2018-03-06] MEDS: HYDROcodone/acetaminophen 10/325mg tab PO PRN (03:49)
--- NOTE | 2018-03-06 05:05 | NUR ---
PT HAD REQUESTED INFORMATION ON GOUT AND LABS FOR KIDNEYS, INOFRMATION PRINTED AND GIVEN TO PT. SURVIVAL SKILLS ALSO GIVEN TO PT AND DISCUSSED. Addendum: 03/06/18 at 0506 by Shan Carreno RN Amended: Links added.
[2018-03-06 05:24] LABS: BASOPHILS % (AUTO) 0.1 % (0-1); EOSINOPHILS # (AUTO) 0.2 X10'3 (0-0.9); LYMPHOCYTES # (AUTO) 1.4 X10'3 (1.1-4.8); LYMPHOCYTES % (AUTO) 8.5 % (21-51); MEAN CORPUSCULAR HEMOGLOBIN 29.4 PG (27.0-31.0); MEAN CORPUSCULAR HGB CONC 32.2 % (33.0-36.5); MEAN CORPUSCULAR VOLUME 91.2 FL (78-98); MEAN PLATELET VOLUME 7.4 FL (7.4-10.4); MONOCYTES # (AUTO) 0.6 X10'3 (0-0.9); MONOCYTES % (AUTO) 3.8 % (2-12); NEUTROPHILS # (AUTO) 13.9 X10'3 (1.8-7.7); NEUTROPHILS % (AUTO) 86.6 % (42-75); PLATELET COUNT 273 X10'3 (140-440); RED BLOOD COUNT 2.38 X10'6 (4.70-6.10); RED CELL DISTRIBUTION WIDTH 16.9 % (11.5-14.5)
[2018-03-06 05:37] LABS: ALBUMIN 2.2 G/DL (3.4-5.0); ANION GAP 15 (8-16); BLOOD UREA NITROGEN 49 MG/DL (7-18); BUN/CREATININE RATIO 13.2 (5.4-32.0); CALCIUM 8.8 MG/DL (8.5-10.1); CHLORIDE 104 MMOL/L (99-107); CREATININE 3.72 MG/DL (0.60-1.10); GLUCOSE 127 MG/DL (70-104); SODIUM 138 MMOL/L (135-145); TOTAL CARBON DIOXIDE 18.9 MMOL/L (24-32); eGFR 17 ML/MIN
[2018-03-06 05:52] LABS: HEMATOCRIT 21.7 % (42.0-52.0)
[2018-03-06 06:00] VITALS: BP 132/86
--- NOTE | 2018-03-06 06:30 | NUR ---
Problems reprioritized. Patient report given, questions answered & plan of care reviewed with ABE DAVID. Addendum: 03/06/18 at 0648 by Shan Carreno RN Amended: Links added.
[2018-03-06] MEDS: CefTRIAXone/D5W-Rocephin 1gm 50 ML IV SCH (08:00)
[2018-03-06] MEDS: heparin, porcine 5000 units/ml vial SQ SCH ×2 (08:00→21:33)
[2018-03-06] MEDS ORDERED: allopurinol 100mg tablet PO SCH (08:30)
[2018-03-06] MEDS: famotidine 20mg tablet PO SCH ×2 (09:02→21:33)
[2018-03-06] MEDS: lactobacillus rhamnosus 10,000 MMU CELLS/CAPSULE PO SCH ×2 (09:02→21:33)
[2018-03-06] MEDS ORDERED: triamcinolone acetonide 40mg/ml inj IM ONE (09:05)
[2018-03-06] MEDS: colchicine 0.6mg tablet PO SCH (09:05)
[2018-03-06] MEDS: diltiazem CD 180mg cap (once-daily) PO SCH (10:32)
[2018-03-06 11:00] VITALS: BP 123/90
--- NOTE | 2018-03-06 11:14 | NUR ---
PAGER ID: [phone] MESSAGE: patient last name carias refusing blood transfusion, ext is [phone]
--- NOTE | 2018-03-06 11:20 | NUR ---
patient refusing blood transfusion, aware
--- NOTE | 2018-03-06 11:32 | NUR ---
DM Consult: Pt A1C 7.9 seen 1.5 weeks ago during prior admit by SHERRIE for written/verbal DM ed. Will monitor for reinforcement needs. Addendum: 03/06/18 at [address] Amended: Links added.
[2018-03-06] MEDS: calcium acetate 667mg (PhosLO) capsule PO SCH ×2 (12:41→21:34)
[2018-03-06] MEDS ORDERED: epoetin 20,000 units/ml inj SQ ONE (14:10)
[2018-03-06] MEDS: HYDROmorphone 1 mg/ml syringe IV PRN ×2 (14:44→21:35)
[2018-03-06 15:00] VITALS: BP 135/89
[2018-03-06 15:38] LABS: FERRITIN 1373 NG/ML (26-388)
[2018-03-06 15:44] LABS: % IRON SATURATION 66 % (11-46); IRON 76 UG/DL (53-167); TOTAL IRON BINDING CAPACITY 116 UG/DL (259-388)
[2018-03-06] MEDS: hydrALAZINE 25 MG tablet PO SCH (16:55)
--- NOTE | 2018-03-06 18:32 | NUR ---
Problems reprioritized. Patient report given, questions answered & plan of care reviewed with Deep RN.
[2018-03-06 19:00] VITALS: BP 131/95
[2018-03-06] MEDS ORDERED: sodium bicarbonate 650mg tablet PO SCH (20:00)
[2018-03-06] MEDS ORDERED: non-formulary drug (Ranitidine HCl 1 TAB) PO SCH (20:00)
[2018-03-06] MEDS: insulin glargine (Lantus) pen - multi-dose SQ SCH (21:00)
[2018-03-06] MEDS: cloNIDine 0.1 mg tablet PO SCH (21:34)
[2018-03-06] MEDS: atorvastatin 20mg tablet PO SCH (21:34)
[2018-03-06] MEDS: sodium bicarbonate 650mg tablet PO SCH (21:35)
[2018-03-06] MEDS: carVEDilol 12.5mg tablet PO SCH (21:35)
[2018-03-06 23:00] VITALS: BP 123/77
[2018-03-07] VITALS (11 sets, daily range): BP systolic 101–136; BP diastolic 62–92
[2018-03-07] MEDS: hydrALAZINE 25 MG tablet PO SCH ×3 (00:04→16:27)
--- NOTE | 2018-03-07 02:33 | NUR ---
Called and notified Dr. Magalie SCOTT in regards to pt now being agreeable to transfusion which he had declined prior during day shift and when assessed by rounding hospitalist Dr. Ting SCOTT. Dr. Magalie SCOTT made aware of this and prior events. Pt vitals are within normal limits with no s/s of distress. states transfusion related interventions can wait until AM, no new orders at this time. Will cont to monitor pt.
[2018-03-07 05:22] LABS: BASOPHILS % (AUTO) 0.2 % (0-1); EOSINOPHILS # (AUTO) 0.2 X10'3 (0-0.9); EOSINOPHILS % (AUTO) 2.4 % (0-6); LYMPHOCYTES # (AUTO) 2.8 X10'3 (1.1-4.8); LYMPHOCYTES % (AUTO) 32.4 % (21-51); MEAN CORPUSCULAR HEMOGLOBIN 29.9 PG (27.0-31.0); MEAN CORPUSCULAR HGB CONC 32.7 % (33.0-36.5); MEAN CORPUSCULAR VOLUME 91.3 FL (78-98); MEAN PLATELET VOLUME 7.2 FL (7.4-10.4); MONOCYTES # (AUTO) 0.4 X10'3 (0-0.9); NEUTROPHILS # (AUTO) 5.2 X10'3 (1.8-7.7); PLATELET COUNT 255 X10'3 (140-440); RED BLOOD COUNT 2.07 X10'6 (4.70-6.10); RED CELL DISTRIBUTION WIDTH 16.5 % (11.5-14.5); WHITE BLOOD COUNT 8.7 X10'3 (4.5-11.0)
[2018-03-07 05:40] LABS: ANION GAP 10 (8-16); BLOOD UREA NITROGEN 48 MG/DL (7-18); BUN/CREATININE RATIO 13.4 (5.4-32.0); CALCIUM 8.4 MG/DL (8.5-10.1); CHLORIDE 109 MMOL/L (99-107); CREATININE 3.58 MG/DL (0.60-1.10); GLUCOSE 91 MG/DL (70-104); MAGNESIUM 1.8 MG/DL (1.5-2.4); PHOSPHORUS 4.3 MG/DL (2.3-4.5); POTASSIUM 3.6 MMOL/L (3.5-5.1); SODIUM 142 MMOL/L (135-145); TOTAL CARBON DIOXIDE 22.7 MMOL/L (24-32); eGFR 18 ML/MIN
[2018-03-07 06:25] LABS: HEMATOCRIT 18.9 % (42.0-52.0); HEMOGLOBIN 6.2 g/dl (14.0-17.9)
--- NOTE | 2018-03-07 07:38 | NUR ---
PAGED DR MALONE RE: BEATRIZ GARCIA. CRITICAL H&H 6.2 & 18.9 .[facility] [phone]
[2018-03-07] MEDS: heparin, porcine 5000 units/ml vial SQ SCH ×2 (08:00→20:00)
[2018-03-07] MEDS: allopurinol 100mg tablet PO SCH (08:50)
[2018-03-07] MEDS: CefTRIAXone/D5W-Rocephin 1gm 50 ML IV SCH (08:50)
[2018-03-07] MEDS: famotidine 20mg tablet PO SCH ×2 (08:51→20:00)
[2018-03-07] MEDS: calcium acetate 667mg (PhosLO) capsule PO SCH ×3 (08:51→18:05)
[2018-03-07] MEDS: cloNIDine 0.1 mg tablet PO SCH ×2 (08:51→20:00)
[2018-03-07] MEDS: colchicine 0.6mg tablet PO SCH (08:51)
[2018-03-07] MEDS: sodium bicarbonate 650mg tablet PO SCH ×2 (08:51→20:00)
[2018-03-07] MEDS: diltiazem CD 180mg cap (once-daily) PO SCH (08:51)
[2018-03-07] MEDS: lactobacillus rhamnosus 10,000 MMU CELLS/CAPSULE PO SCH ×2 (08:52→20:00)
[2018-03-07] MEDS: carVEDilol 12.5mg tablet PO SCH ×2 (08:52→20:00)
[2018-03-07] MEDS: predniSONE 20 mg tablet PO SCH (08:57)
[2018-03-07] MEDS: HYDROmorphone 1 mg/ml syringe IV PRN ×2 (12:30→16:27)
--- NOTE | 2018-03-07 18:21 | NUR ---
Problems reprioritized. Patient report given, questions answered & plan of care reviewed with DEEP RN.
[2018-03-07] MEDS: insulin glargine (Lantus) pen - multi-dose SQ SCH (21:00)
[2018-03-07] MEDS: atorvastatin 20mg tablet PO SCH (21:00)
[2018-03-08 03:00] VITALS: BP 107/64
[2018-03-08 05:43] LABS: BASOPHILS % (AUTO) 0.2 % (0-1); EOSINOPHILS % (AUTO) 0 % (0-6); HEMOGLOBIN 7.6 g/dl (14.0-17.9); LYMPHOCYTES # (AUTO) 1.6 X10'3 (1.1-4.8); LYMPHOCYTES % (AUTO) 16.2 % (21-51); MEAN CORPUSCULAR HEMOGLOBIN 30.1 PG (27.0-31.0); MEAN CORPUSCULAR VOLUME 91.3 FL (78-98); MEAN PLATELET VOLUME 7.5 FL (7.4-10.4); MONOCYTES # (AUTO) 0.4 X10'3 (0-0.9); MONOCYTES % (AUTO) 4.1 % (2-12); NEUTROPHILS # (AUTO) 7.6 X10'3 (1.8-7.7); NEUTROPHILS % (AUTO) 79.5 % (42-75); PLATELET COUNT 287 X10'3 (140-440); RED BLOOD COUNT 2.52 X10'6 (4.70-6.10); RED CELL DISTRIBUTION WIDTH 16.5 % (11.5-14.5); WHITE BLOOD COUNT 9.6 X10'3 (4.5-11.0)
[2018-03-08 06:23] LABS: ALBUMIN 2.2 G/DL (3.4-5.0); ANION GAP 9 (8-16); BLOOD UREA NITROGEN 56 MG/DL (7-18); BUN/CREATININE RATIO 15.1 (5.4-32.0); CALCIUM 8.5 MG/DL (8.5-10.1); CHLORIDE 109 MMOL/L (99-107); GLUCOSE 130 MG/DL (70-104); MAGNESIUM 1.9 MG/DL (1.5-2.4); PHOSPHORUS 3.8 MG/DL (2.3-4.5); POTASSIUM 4.2 MMOL/L (3.5-5.1); SODIUM 140 MMOL/L (135-145); eGFR 17 ML/MIN
--- NOTE | 2018-03-08 06:44 | NUR ---
Patient in room PCU 3023. I have received report from ABE BRAVO and had the opportunity to ask questions and assume patient care.
[2018-03-08 07:02] VITALS: BP 152/100
--- NOTE | 2018-03-08 07:05 | NUR ---
Problems reprioritized. Patient report given, questions answered & plan of care reviewed with ABE Harvey.
[2018-03-08] MEDS: predniSONE 20 mg tablet PO SCH (08:10)
[2018-03-08] MEDS: hydrALAZINE 25 MG tablet PO SCH ×3 (08:10→16:27)
[2018-03-08] MEDS: diltiazem CD 180mg cap (once-daily) PO SCH (08:10)
[2018-03-08] MEDS: colchicine 0.6mg tablet PO SCH (08:10)
[2018-03-08] MEDS: HYDROmorphone 1 mg/ml syringe IV PRN ×3 (08:10→21:05)
[2018-03-08] MEDS: famotidine 20mg tablet PO SCH ×2 (08:11→20:42)
[2018-03-08] MEDS: calcium acetate 667mg (PhosLO) capsule PO SCH ×3 (08:11→17:48)
[2018-03-08] MEDS: cloNIDine 0.1 mg tablet PO SCH ×2 (08:11→20:43)
[2018-03-08] MEDS: allopurinol 100mg tablet PO SCH (08:11)
[2018-03-08] MEDS: lactobacillus rhamnosus 10,000 MMU CELLS/CAPSULE PO SCH ×2 (08:11→20:42)
[2018-03-08] MEDS: carVEDilol 12.5mg tablet PO SCH ×2 (08:11→20:42)
[2018-03-08] MEDS: sodium bicarbonate 650mg tablet PO SCH ×2 (08:11→20:43)
[2018-03-08] MEDS: CefTRIAXone/D5W-Rocephin 1gm 50 ML IV SCH (08:11)
[2018-03-08] MEDS: heparin, porcine 5000 units/ml vial SQ SCH ×2 (08:12→20:43)
[2018-03-08 11:00] VITALS: BP 110/87
[2018-03-08 16:00] VITALS: BP 118/83
[2018-03-08] MEDS: HYDROcodone/acetaminophen 10/325mg tab PO PRN (16:27)
--- NOTE | 2018-03-08 18:49 | NUR ---
Problems reprioritized. Patient report given, questions answered & plan of care reviewed with giuliana ross.
--- NOTE | 2018-03-08 18:50 | NUR ---
Patient in room PCU 3023. I have received report from ABE Harvey and had the opportunity to ask questions and assume patient care.
[2018-03-08 19:00] VITALS: BP 164/101
[2018-03-08] MEDS: atorvastatin 20mg tablet PO SCH (20:43)
[2018-03-08] MEDS: insulin glargine (Lantus) pen - multi-dose SQ SCH (21:00)
[2018-03-08 23:00] VITALS: BP 132/80
[2018-03-09] VITALS (7 sets, daily range): BP systolic 119–170; BP diastolic 68–94
[2018-03-09] MEDS: hydrALAZINE 25 MG tablet PO SCH ×4 (00:56→23:26)
[2018-03-09] MEDS: HYDROmorphone 1 mg/ml syringe IV PRN ×3 (03:22→21:05)
[2018-03-09 05:31] LABS: BASOPHILS % (AUTO) 0.4 % (0-1); EOSINOPHILS # (AUTO) 0.1 X10'3 (0-0.9); EOSINOPHILS % (AUTO) 0.8 % (0-6); HEMATOCRIT 23.2 % (42.0-52.0); HEMOGLOBIN 7.6 g/dl (14.0-17.9); LYMPHOCYTES # (AUTO) 2.4 X10'3 (1.1-4.8); LYMPHOCYTES % (AUTO) 21.3 % (21-51); MEAN CORPUSCULAR HEMOGLOBIN 29.8 PG (27.0-31.0); MEAN CORPUSCULAR HGB CONC 32.7 % (33.0-36.5); MEAN CORPUSCULAR VOLUME 91.2 FL (78-98); MEAN PLATELET VOLUME 7.4 FL (7.4-10.4); MONOCYTES # (AUTO) 0.6 X10'3 (0-0.9); MONOCYTES % (AUTO) 5.7 % (2-12); NEUTROPHILS # (AUTO) 8.1 X10'3 (1.8-7.7); NEUTROPHILS % (AUTO) 71.8 % (42-75); PLATELET COUNT 287 X10'3 (140-440); RED BLOOD COUNT 2.54 X10'6 (4.70-6.10); RED CELL DISTRIBUTION WIDTH 16.7 % (11.5-14.5); WHITE BLOOD COUNT 11.3 X10'3 (4.5-11.0)
[2018-03-09 05:59] LABS: ALBUMIN 2.2 G/DL (3.4-5.0); ANION GAP 12 (8-16); BLOOD UREA NITROGEN 60 MG/DL (7-18); BUN/CREATININE RATIO 18.1 (5.4-32.0); CALCIUM 8.5 MG/DL (8.5-10.1); CHLORIDE 108 MMOL/L (99-107); CREATININE 3.32 MG/DL (0.60-1.10); GLUCOSE 113 MG/DL (70-104); MAGNESIUM 1.8 MG/DL (1.5-2.4); SODIUM 143 MMOL/L (135-145); eGFR 19 ML/MIN
--- NOTE | 2018-03-09 06:30 | NUR ---
Patient in room PCU 3023. I have received report from ABE DEVI and had the opportunity to ask questions and assume patient care.
--- NOTE | 2018-03-09 06:34 | NUR ---
Problems reprioritized. Patient report given, questions answered & plan of care reviewed with ABE El.
[2018-03-09] MEDS: CefTRIAXone/D5W-Rocephin 1gm 50 ML IV SCH (09:17)
[2018-03-09] MEDS: diltiazem CD 180mg cap (once-daily) PO SCH (09:19)
[2018-03-09] MEDS: cloNIDine 0.1 mg tablet PO SCH ×2 (09:19→21:03)
[2018-03-09] MEDS: colchicine 0.6mg tablet PO SCH (09:20)
[2018-03-09] MEDS: lactobacillus rhamnosus 10,000 MMU CELLS/CAPSULE PO SCH ×2 (09:21→21:03)
[2018-03-09] MEDS: carVEDilol 12.5mg tablet PO SCH ×2 (09:21→21:03)
[2018-03-09] MEDS: famotidine 20mg tablet PO SCH ×2 (09:22→21:03)
[2018-03-09] MEDS: calcium acetate 667mg (PhosLO) capsule PO SCH ×3 (09:24→19:12)
[2018-03-09] MEDS: predniSONE 20 mg tablet PO SCH (09:24)
[2018-03-09] MEDS: sodium bicarbonate 650mg tablet PO SCH ×2 (09:26→21:02)
[2018-03-09] MEDS: heparin, porcine 5000 units/ml vial SQ SCH ×2 (09:26→21:02)
[2018-03-09] MEDS: allopurinol 100mg tablet PO SCH (09:26)
[2018-03-09] MEDS ORDERED: predniSONE 20 mg tablet PO ONE (11:20)
[2018-03-09] MEDS: HYDROcodone/acetaminophen 10/325mg tab PO PRN ×3 (11:44→23:27)
--- NOTE | 2018-03-09 17:34 | NUR ---
MEDIA DIRECTORparaprofessional aide teacher: I have reviewed and agree with all interventions, assessments performed and documented by ABE BARGER.
--- NOTE | 2018-03-09 18:30 | NUR ---
Patient in room PCU 3023. I have received report from giuliana El and had the opportunity to ask questions and assume patient care.
--- NOTE | 2018-03-09 18:43 | NUR ---
Problems reprioritized. Patient report given, questions answered & plan of care reviewed with ABE GUADALUPE.
[2018-03-09] MEDS: insulin glargine (Lantus) pen - multi-dose SQ SCH (21:01)
[2018-03-09] MEDS: atorvastatin 20mg tablet PO SCH (21:03)
[2018-03-10 02:00] VITALS: BP 157/96
[2018-03-10] MEDS ORDERED: HYDROmorphone inj. 0.5 MG/0.5 ML DISP.SYRIN IV PRN (02:35)
--- NOTE | 2018-03-10 04:44 | NUR ---
PT WAS ASKED IF HE NEEDS PAIN MED SINCE HE CLAIMED PAIN 10/10 FOR VITAL. BUT PT TOLD "NO. I WANT TO SLEEP". CONTINUE TO MONITOR.
[2018-03-10 06:00] VITALS: BP 168/96
[2018-03-10 06:08] LABS: BASOPHILS # (AUTO) 0.1 X10'3 (0-0.2); BASOPHILS % (AUTO) 0.7 % (0-1); EOSINOPHILS % (AUTO) 0 % (0-6); HEMATOCRIT 24.5 % (42.0-52.0); HEMOGLOBIN 8.1 g/dl (14.0-17.9); LYMPHOCYTES # (AUTO) 1.9 X10'3 (1.1-4.8); LYMPHOCYTES % (AUTO) 15.3 % (21-51); MEAN CORPUSCULAR HEMOGLOBIN 30.1 PG (27.0-31.0); MEAN CORPUSCULAR HGB CONC 33.1 % (33.0-36.5); MEAN CORPUSCULAR VOLUME 90.9 FL (78-98); MEAN PLATELET VOLUME 7.5 FL (7.4-10.4); MONOCYTES # (AUTO) 0.5 X10'3 (0-0.9); MONOCYTES % (AUTO) 3.9 % (2-12); NEUTROPHILS # (AUTO) 9.7 X10'3 (1.8-7.7); NEUTROPHILS % (AUTO) 80.1 % (42-75); PLATELET COUNT 333 X10'3 (140-440); RED CELL DISTRIBUTION WIDTH 16.5 % (11.5-14.5); WHITE BLOOD COUNT 12.2 X10'3 (4.5-11.0)
[2018-03-10 06:18] LABS: ALBUMIN 2.4 G/DL (3.4-5.0); ANION GAP 12 (8-16); BLOOD UREA NITROGEN 58 MG/DL (7-18); CALCIUM 8.8 MG/DL (8.5-10.1); CHLORIDE 106 MMOL/L (99-107); CREATININE 3.22 MG/DL (0.60-1.10); GLUCOSE 132 MG/DL (70-104); MAGNESIUM 1.9 MG/DL (1.5-2.4); PHOSPHORUS 4.3 MG/DL (2.3-4.5); POTASSIUM 4.2 MMOL/L (3.5-5.1); SODIUM 139 MMOL/L (135-145); TOTAL CARBON DIOXIDE 21.5 MMOL/L (24-32); eGFR 20 ML/MIN
--- NOTE | 2018-03-10 06:27 | NUR ---
Problems reprioritized. Patient report given, questions answered & plan of care reviewed with ABE CASH.
--- NOTE | 2018-03-10 06:57 | NUR ---
Patient in room PCU 3023. I have received report from ABE ROSE and had the opportunity to ask questions and assume patient care.
[2018-03-10] MEDS: cloNIDine 0.1 mg tablet PO SCH ×2 (08:00→20:07)
[2018-03-10] MEDS: diltiazem CD 180mg cap (once-daily) PO SCH (08:00)
[2018-03-10] MEDS: carVEDilol 12.5mg tablet PO SCH ×2 (08:00→20:07)
[2018-03-10] MEDS ORDERED: epoetin 20,000 units/ml inj SQ SCH (08:00)
[2018-03-10] MEDS: CefTRIAXone/D5W-Rocephin 1gm 50 ML IV SCH (08:45)
[2018-03-10] MEDS: hydrALAZINE 25 MG tablet PO SCH ×3 (08:52→23:45)
[2018-03-10] MEDS: lactobacillus rhamnosus 10,000 MMU CELLS/CAPSULE PO SCH ×2 (08:54→20:07)
[2018-03-10] MEDS: colchicine 0.6mg tablet PO SCH (08:54)
[2018-03-10] MEDS: famotidine 20mg tablet PO SCH ×2 (08:55→20:07)
[2018-03-10] MEDS: predniSONE 20 mg tablet PO SCH (08:56)
[2018-03-10] MEDS: calcium acetate 667mg (PhosLO) capsule PO SCH ×3 (08:56→17:16)
[2018-03-10] MEDS: allopurinol 100mg tablet PO SCH (08:57)
[2018-03-10] MEDS: sodium bicarbonate 650mg tablet PO SCH ×2 (08:57→20:07)
[2018-03-10] MEDS: heparin, porcine 5000 units/ml vial SQ SCH ×2 (08:58→20:08)
[2018-03-10] MEDS: insulin Lispro (HumaLOG) vial - multi-dose SQ SCH ×3 (09:52→18:46)
[2018-03-10 11:00] VITALS: BP 153/93
--- NOTE | 2018-03-10 12:12 | NUR ---
PAGER ID: [phone] MESSAGE: DR. MALONE, [id number]/JOSE, HR 50 THIS AM, HELD COREG, SILVESTREM, CLONIDINE PER ORDERS. SHAILESH [id number]. TY
[2018-03-10] MEDS: HYDROmorphone 1 mg/ml syringe IV PRN ×2 (13:31→18:40)
--- NOTE | 2018-03-10 14:12 | NUR ---
Initial: Patient transfer from [place] with join pain and with exacerbation of gout. Eating well, 75-100% of carb controlled diet. No nutrition problem at this time. Recommend: 1. Continue carb controlled diet 2. Wt per rx Addendum: 03/10/18 at [address] Amended: Links added.
[2018-03-10 15:00] VITALS: BP 144/101
[2018-03-10] MEDS: HYDROcodone/acetaminophen 10/325mg tab PO PRN (15:18)
[2018-03-10] MEDS ORDERED: amLODIPine 5mg tablet PO ONE (16:20)
[2018-03-10] MEDS ORDERED: epoetin 20,000 units/ml inj SQ ONE (16:30)
--- NOTE | 2018-03-10 18:39 | NUR ---
HOTEL OFFICE MANAGERlaborer concrete paving: I have reviewed and agree with all interventions, assessments performed and documented by ABE BARGER.
--- NOTE | 2018-03-10 18:39 | NUR ---
Problems reprioritized. Patient report given, questions answered & plan of care reviewed with ABE SOLIS.
[2018-03-10 18:50] VITALS: BP 173/110
[2018-03-10] MEDS: atorvastatin 20mg tablet PO SCH (20:07)
[2018-03-10] MEDS: insulin glargine (Lantus) pen - multi-dose SQ SCH (21:25)
[2018-03-10 23:00] VITALS: BP 128/92
[2018-03-11] MEDS: HYDROcodone/acetaminophen 10/325mg tab PO PRN (01:08)
[2018-03-11 03:00] VITALS: BP 155/91
[2018-03-11 06:00] VITALS: BP 159/86
--- NOTE | 2018-03-11 06:11 | NUR ---
Problems reprioritized. Patient report given, questions answered & plan of care reviewed with Nikko. Addendum: 03/11/18 at 0611 by Valdez Del Rosario RN Amended: Links added.
[2018-03-11 06:12] LABS: BASOPHILS # (AUTO) 0.1 X10'3 (0-0.2); BASOPHILS % (AUTO) 0.4 % (0-1); EOSINOPHILS % (AUTO) 0.1 % (0-6); HEMATOCRIT 24.3 % (42.0-52.0); HEMOGLOBIN 7.9 g/dl (14.0-17.9); LYMPHOCYTES # (AUTO) 2.2 X10'3 (1.1-4.8); LYMPHOCYTES % (AUTO) 14.4 % (21-51); MEAN CORPUSCULAR HEMOGLOBIN 29.5 PG (27.0-31.0); MEAN CORPUSCULAR HGB CONC 32.5 % (33.0-36.5); MEAN CORPUSCULAR VOLUME 90.9 FL (78-98); MEAN PLATELET VOLUME 7.3 FL (7.4-10.4); MONOCYTES # (AUTO) 0.7 X10'3 (0-0.9); MONOCYTES % (AUTO) 4.4 % (2-12); NEUTROPHILS # (AUTO) 12.2 X10'3 (1.8-7.7); NEUTROPHILS % (AUTO) 80.7 % (42-75); PLATELET COUNT 374 X10'3 (140-440); RED BLOOD COUNT 2.68 X10'6 (4.70-6.10); RED CELL DISTRIBUTION WIDTH 16.6 % (11.5-14.5); WHITE BLOOD COUNT 15.2 X10'3 (4.5-11.0)
[2018-03-11 06:34] LABS: ALANINE AMINOTRANSFERASE 22 U/L (12-78); ALBUMIN 2.5 G/DL (3.4-5.0); ALBUMIN/GLOBULIN RATIO 0.6 (1.1-1.5); ALKALINE PHOSPHATASE 48 IU/L (46-116); ANION GAP 12 (8-16); ASPARTATE AMINO TRANSFERASE 15 U/L (10-37); BILIRUBIN,TOTAL 0.2 MG/DL (0.1-1.0); BLOOD UREA NITROGEN 61 MG/DL (7-18); BUN/CREATININE RATIO 18.5 (5.4-32.0); CALCIUM 8.5 MG/DL (8.5-10.1); CHLORIDE 106 MMOL/L (99-107); GLUCOSE 132 MG/DL (70-104); MAGNESIUM 1.9 MG/DL (1.5-2.4); PHOSPHORUS 4.1 MG/DL (2.3-4.5); SODIUM 140 MMOL/L (135-145); TOTAL CARBON DIOXIDE 22.2 MMOL/L (24-32); TOTAL PROTEIN 6.4 G/DL (6.4-8.2); eGFR 19 ML/MIN
--- NOTE | 2018-03-11 06:50 | NUR ---
Patient in room PCU 3023. I have received report from ABE SOLIS and had the opportunity to ask questions and assume patient care.
[2018-03-11] MEDS: carVEDilol 12.5mg tablet PO SCH (08:00)
[2018-03-11] MEDS: cloNIDine 0.1 mg tablet PO SCH (08:00)
[2018-03-11] MEDS ORDERED: amLODIPine 5mg tablet PO SCH (08:00)
[2018-03-11] MEDS: colchicine 0.6mg tablet PO SCH (08:48)
[2018-03-11] MEDS: sodium bicarbonate 650mg tablet PO SCH (08:48)
[2018-03-11] MEDS: lactobacillus rhamnosus 10,000 MMU CELLS/CAPSULE PO SCH (08:48)
[2018-03-11] MEDS: calcium acetate 667mg (PhosLO) capsule PO SCH ×2 (08:48→12:17)
[2018-03-11] MEDS: allopurinol 100mg tablet PO SCH (08:48)
[2018-03-11] MEDS: predniSONE 20 mg tablet PO SCH (08:48)
[2018-03-11] MEDS: hydrALAZINE 25 MG tablet PO SCH (08:48)
[2018-03-11] MEDS: famotidine 20mg tablet PO SCH (08:48)
[2018-03-11] MEDS: heparin, porcine 5000 units/ml vial SQ SCH (08:49)
--- NOTE | 2018-03-11 09:25 | NUR ---
PAGER ID: [phone] MESSAGE: DR. MALONE, [id number]/JOSE, AM HR 49, BP 159/86. HELD DEAN CALLEJAS. SHAILESH [id number]. TY
[2018-03-11] MEDS: insulin Lispro (HumaLOG) vial - multi-dose SQ SCH ×2 (09:34→12:57)
[2018-03-11 11:06] VITALS: BP 159/96
[2018-03-11] MEDS ORDERED: LACT1CAP26 PO (12:24)
[2018-03-11] MEDS ORDERED: PRED10TA23 PO (12:24)
[2018-03-11] MEDS ORDERED: FURO-150 PO (12:24)
[2018-03-11] MEDS ORDERED: EPOE200015 SQ (12:24)
[2018-03-11] MEDS ORDERED: COL0.6T PO (12:24)
[2018-03-11] MEDS ORDERED: NOR5T PO (12:24)
[2018-03-11] MEDS: HYDROmorphone 1 mg/ml syringe IV PRN (12:58)
--- NOTE | 2018-03-11 14:40 | NUR ---
NEW HIRE software qa manager: I have reviewed and agree with all interventions, assessments performed and documented by ABE BARGER.
== END 2018-03-11 14:30 | disposition home or self-care (01) | DRG 351 ==
LOC: ER 00:53 → ED HOLD 01:37 → EDBEDREQ 03:31 → PCU 3S 04:05
PROVIDERS: ADMIT Hospitalist; ATTEND Family Medicine
PROC: 30233N1 Transfusion of Nonautologous Red Blood Cells into Peripheral Vein, Percutaneous Approach (ICD-10-PCS; principal; 2018-03-07)
DX: M1A.9XX0 Chronic gout, unspecified, without tophus (tophi) (principal); E11.22 Type 2 diabetes mellitus with diabetic chronic kidney disease; N18.4 Chronic kidney disease, stage 4 (severe); D72.829 Elevated white blood cell count, unspecified; N39.0 Urinary tract infection, site not specified; D63.1 Anemia in chronic kidney disease; I12.9 Hypertensive chronic kidney disease with stage 1 through stage 4 chronic kidney disease, or unspecified chronic kidney disease; E78.5 Hyperlipidemia, unspecified; R00.1 Bradycardia, unspecified; Z79.899 Other long term (current) drug therapy
CPT/HCPCS: 36415; 71046; 73560; 73600; 80048; 80053; 82728; 82948; 83540; 83550; 83735; 84100; 84550; 85025; 85651; 86885; 86900; 86901; 86920; 87040; 87070; 87088; 97116; 97162; 97530; 99285; G0378; J0696; J0885; J1170; J1644; J1815; J3301; J7512; P9016